=== PATIENT | male | born 1985 | race American Indian/Alaskan Native ===

== ENCOUNTER 2017-04-13 18:22 | Inpatient (IN) | payer MEDICAID, OTHER ==
[2017-04-13 18:22] VITALS: BMI 23.1
--- NOTE | 2017-04-13 19:07 | ED PDOC ---
Arrival/HPI <John Lee - Last Filed: 04/13/17 22:24> - General Historian: Patient EM Caveat: Acuity of Condition - History of Present Illness Time/Duration: Prior to Arrival Symptom Onset: Gradual Symptom Course: Unchanged Activities at Onset: Emotional Upset Context: Home <Francisco Conklin - Last Filed: 04/13/17 22:29> - General Chief Complaint: Psychiatric Evaluation Time Seen by Provider: 04/13/17 18:28 - History of Present Illness Narrative History of Present Illness (Text): Patient is a 32 year old male who presents to the [facility] ED 04/13/17 with police after his girlfriend called them when he threatened to jump out of the window. Patient states he is currently going through a lot of stress with his girlfriend being . Patient states he has lots of pent up emotion since the of his father in 2010. Due to culture and events in life he feels as though he hasn't been able to fully mourn, express his emotions which lead to these occasional outburts. Patient denies any thoughts of desire of suicide. He the words just came to his mind out of frustration 04/13/17 19:15 (Francisco Conklin) Past Medical History - Provider Review Nursing Documentation Reviewed: Yes - Infectious Disease Hx of Infectious Diseases: None - Psychiatric Hx Substance Use: No - Surgical History Hx Orthopedic Surgery: Yes (right ankle) Other/Comment: Hernia Surgery at age 6 <Francisco Conklin - Last Filed: 04/13/17 22:29> Family/Social History - Physician Review Nursing Documentation Reviewed: Yes Family/Social History: Other (non contributory) Smoking Status: Current Some Days Smoker Hx Alcohol Use: No Hx Substance Use: No <Francisco Conklin - Last Filed: 04/13/17 22:29> Allergies/Home Meds <John Lee - Last Filed: 04/13/17 22:24> <Francisco Conklin - Last Filed: 04/13/17 22:29> Allergies/Adverse Reactions: Allergies No Known Allergies Allergy (Verified 04/13/17 18:28) Home Medications: Home Meds Medication Instructions Recorded Confirmed No Known Home Med 07/27/16 04/13/17 Review of Systems - Physician Review All systems were reviewed & negative as marked: Yes - Review of Systems Systems not reviewed;Unavailable: Acuity of Condition Constitutional: absent: Fatigue, Weight Change Eyes: Normal ENT: Normal. absent: Hearing Changes Respiratory: absent: SOB, Cough Cardiovascular: absent: Chest Pain, Palpitations Gastrointestinal: absent: Abdominal Pain, Stool Changes Genitourinary Male: Dysuria, Frequency Musculoskeletal: Normal Skin: Normal Neurological: absent: Headache, Dizziness Endocrine: absent: Diaphoresis, Polyuria Hemo/Lymphatic: Normal Psychiatric: absent: Depression, Suicidal Ideation <Francisco Conklin - Last Filed: 04/13/17 22:29> Physical Exam Vital Signs Reviewed: Yes Temperature: Afebrile Blood Pressure: Normal Pulse: Regular Respiratory Rate: Normal Appearance: Positive for: Well-Appearing Pain Distress: None Mental Status: Positive for: Alert and Oriented X 3 - Systems Exam Head: Present: Atraumatic, Normocephalic Extroacular Muscles: Present: EOMI Mouth: Present: Moist Mucous Membranes Neck: Present: Normal Range of Motion Respiratory/Chest: Present: Clear to Auscultation, Good Air Exchange Cardiovascular: Present: Regular Rate and Rhythm, Normal S1, S2, Tachycardic. No: Murmurs Abdomen: No: Tenderness, Distention, Normal Bowel Sounds Neurological: No: CN II-XII Intact Skin: Present: Warm, Normal Color Psychiatric: Present: Alert, Oriented x 3 <Francisco Conklin - Last Filed: 04/13/17 22:29> Vital Signs Temp Pulse Resp BP Pulse Ox 04/13/17 20:25 55 L 16 119/68 99 04/13/17 18:41 99.1 F 64 16 134/87 98 Medical Decision Making <John Lee - Last Filed: 04/13/17 22:24> - Lab Interpretations I have reviewed the lab results: Yes - EKG Interpretation Interpreted by ED Physician: Yes Type: 12 lead EKG <Francisco Conklin - Last Filed: 04/13/17 22:29> ED Course and Treatment: 04/13/17 Patient Seen With Resident: In agreement with resident note which contains more details about the patient. Patient was seen and evaluated with resident. Came up with plan and treatment together. 04/13/17 22:14 Patient seen with resident; he was cleared for PES evaluation. Seen by PES - not cleared - will need [facility] screen. 04/13/17 22:15 Patient will be endorsed to Dr. Britton. (John Lee) Assessment 32 year old male who states at home " I want to jump out of a window" Plan - Drug screen, CBC, CMP - CXR, EKG - UA - PES assessment; [facility] will assess to see if patient will be committed 04/13/17 19:29 (Francisco Conklin) - Lab Interpretations Lab Results: 04/13/17 19:12 04/13/17 19:12 Lab Results 04/13/17 19:43: Urine Opiates Screen Negative, Urine Methadone Screen Negative, Ur Barbiturates Screen Negative, Ur Phencyclidine Scrn Negative, Ur Amphetamines Screen Negative, U Benzodiazepines Scrn Negative, U Oth Cocaine Metabols Negative, U Cannabinoids Screen Positive H 04/13/17 19:43: Urine Color Yellow, Urine Appearance Clear, Urine pH 6.0, Ur Specific [place] >= 1.030, Urine Protein Trace H, Urine Glucose (UA) Negative, Urine Ketones Trace H, Urine Blood Negative, Urine Nitrate Negative, Urine Bilirubin Negative, Urine Urobilinogen 1.0 H, Ur Leukocyte Esterase Negative, Urine RBC Negative, Urine WBC 1 - 3, Urine Other Mucus 04/13/17 19:12: Alcohol, Quantitative < 10 04/13/17 19:12: Sodium 143, Potassium 4.1, Chloride 104, Carbon Dioxide 27, Anion Gap 16, BUN 15, Creatinine 1.0, Est GFR ( Amer) > 60, Est GFR (Non- Af Amer) > 60, Random Glucose 84, Calcium 10.0, Magnesium 2.0, Total Bilirubin 1.2, AST 47, ALT 37, Alkaline Phosphatase 46, Total Creatine Kinase 1462 H, CK- MB (CK-2) 3.0, CK-MB (CK-2) % Cancelled, Total Protein 8.4 H, Albumin 5.0 H, Globulin 3.3, Albumin/Globulin Ratio 1.5, Lipase 59 04/13/17 19:12: WBC 5.4, RBC 4.03, Hgb 13.4 L, Hct 39.4 L, MCV 97.8, MCH 33.3, MCHC 34.0, RDW 11.1 L, Plt Count 164, MPV 11.1 H, Gran % 53.1, Lymph % (Auto) 36.4 H, [place] % (Auto) 8.4 H, Eos % (Auto) 1.7, Baso % (Auto) 0.4, Gran # 2.85, Lymph # 2.0, [place] # 0.5, Eos # 0.1, Baso # 0.02 - RAD Interpretation Radiology Orders: 04/13/17 18:36 CHEST PORTABLE [RAD] Stat - PA / FLOOR LAYER / Resident Statement /DO has reviewed & agrees with the documentation as recorded. / has examined the patient and agrees with the treatment plan. <John Lee - Last Filed: 04/13/17 22:24> Disposition/Present on Arrival - Present on Arrival Any Indicators Present on Arrival: No - Disposition Have Diagnosis and Disposition been Completed?: No Disposition Time: 23:00 <John Lee - Last Filed: 04/13/17 22:24> - Present on Arrival Any Indicators Present on Arrival: No History of DVT/PE: No History of Uncontrolled Diabetes: No Urinary Catheter: No History of Decub. Ulcer: No History Surgical Site Infection Following: None - Disposition Have Diagnosis and Disposition been Completed?: No <Francisco Conklin - Last Filed: 04/13/17 22:29> - Disposition Diagnosis: Depression Patient Problems: Current Active Problems Problem Status Onset Depression Acute Condition: STABLE Referrals: PCP,NO [Primary Care Provider] - Follow up with primary Forms: [employer] (Maldivian)
[2017-04-13 19:30] LABS: BASO # 0.02 K/mm3 (0.0-2.0); BASO % 0.4 % (0.0-3.0); EOS # 0.1 (0.0-0.7); EOS % 1.7 % (1.5-5.0); GRAN # 2.85 (1.4-6.5); GRAN % 53.1 % (50.0-68.0); HEMATOCRIT 39.4 % (42.0-52.0); LYMPH % 36.4 % (22.0-35.0); MEAN CELL VOLUME 97.8 fl (80.0-105.0); MEAN CORPUSCULAR HEMOGLOBIN 33.3 pg (25.0-35.0); MEAN PLATELET VOLUME 11.1 fl (7.0-11.0); MONO # 0.5 (0.1-0.6); MONO % 8.4 % (1.0-6.0); RED CELL DISTRIBUTION WIDTH 11.1 % (11.5-14.5); WHITE BLOOD COUNT 5.4 10^3/ul (4.5-11.0)
[2017-04-13 19:37] LABS: ALB/GLOB RATIO 1.5 (1.1-1.8); ALKALINE PHOSPHATASE 46 U/L (38-126); ALT/SGPT 37 U/L (7-56); AST/SGOT 47 U/L (17-59); BILIRUBIN,TOTAL 1.2 mg/dL (0.2-1.3); BLOOD UREA NITROGEN 15 mg/dL (7-21); CARBON DIOXIDE 27 mmol/L (21-33); CHLORIDE 104 mmol/L (98-107); GFR AFRICAN-AMERICAN > 60; GLUCOSE,RANDOM 84 mg/dL (70-110); LIPASE 59 U/L (23-300); POTASSIUM 4.1 mmol/L (3.6-5.0); SODIUM 143 mmol/L (132-148); TOTAL PROTEIN 8.4 g/dL (5.8-8.3)
[2017-04-13 19:54] LABS: URINE BILIRUBIN NEGATIVE (NEGATIVE); URINE BLOOD NEGATIVE (NEGATIVE); URINE GLUCOSE (UA) NEGATIVE (NEGATIVE); URINE KETONE TRACE mg/dL (NEGATIVE); URINE LEUKOCYTE ESTERASE NEGATIVE Leu/uL (NEGATIVE); URINE PROTEIN TRACE mg/dL (<30 mg/dL)
[2017-04-13 19:55] LABS: URINE APPEARANCE CLEAR (CLEAR); URINE COLOR YELLOW (YELLOW)
[2017-04-13 19:57] LABS: URINE RBC NEGATIVE /hpf (0-2)
[2017-04-13] MEDS ORDERED: Sodium Chloride 0.9% 1,000 ML IV SCH (23:45)
--- NOTE | 2017-04-14 00:04 | ED PDOC ---
Physical Exam Vital Signs Reviewed: Yes Vital Signs Temp Pulse Resp BP Pulse Ox 04/14/17 00:06 98.3 F 51 L 16 146/84 100 04/13/17 20:25 55 L 16 119/68 99 04/13/17 18:41 99.1 F 64 16 134/87 98 Temperature: Afebrile Blood Pressure: Normal Pulse: Regular Respiratory Rate: Normal Appearance: Positive for: Well-Appearing, Non-Toxic, Comfortable Pain Distress: None Mental Status: Positive for: Alert and Oriented X 3 Medical Decision Making ED Course and Treatment: 04/13/17 23:00 Case endorsed to me by Dr. Lee, pending [facility] PES screening. 04/14/17 00:56 Pt re-evaluated by [facility] screener Anamaria, who discussed case with psychiatrist. Pt now agreeable with voluntary admission. Pt will be admitted to Behavioral Health for depression and adjustment disorder under Dr. Jones' s service. - Lab Interpretations Lab Results: 04/13/17 19:12 04/13/17 19:12 Lab Results 04/13/17 19:43: Urine Opiates Screen Negative, Urine Methadone Screen Negative, Ur Barbiturates Screen Negative, Ur Phencyclidine Scrn Negative, Ur Amphetamines Screen Negative, U Benzodiazepines Scrn Negative, U Oth Cocaine Metabols Negative, U Cannabinoids Screen Positive H 04/13/17 19:43: Urine Color Yellow, Urine Appearance Clear, Urine pH 6.0, Ur Specific [place] >= 1.030, Urine Protein Trace H, Urine Glucose (UA) Negative, Urine Ketones Trace H, Urine Blood Negative, Urine Nitrate Negative, Urine Bilirubin Negative, Urine Urobilinogen 1.0 H, Ur Leukocyte Esterase Negative, Urine RBC Negative, Urine WBC 1 - 3, Urine Other Mucus 04/13/17 19:12: Alcohol, Quantitative < 10 04/13/17 19:12: Sodium 143, Potassium 4.1, Chloride 104, Carbon Dioxide 27, Anion Gap 16, BUN 15, Creatinine 1.0, Est GFR ( Amer) > 60, Est GFR (Non- Af Amer) > 60, Random Glucose 84, Calcium 10.0, Magnesium 2.0, Total Bilirubin 1.2, AST 47, ALT 37, Alkaline Phosphatase 46, Total Creatine Kinase 1462 H, CK- MB (CK-2) 3.0, CK-MB (CK-2) % Cancelled, Total Protein 8.4 H, Albumin 5.0 H, Globulin 3.3, Albumin/Globulin Ratio 1.5, Lipase 59 04/13/17 19:12: WBC 5.4, RBC 4.03, Hgb 13.4 L, Hct 39.4 L, MCV 97.8, MCH 33.3, MCHC 34.0, RDW 11.1 L, Plt Count 164, MPV 11.1 H, Gran % 53.1, Lymph % (Auto) 36.4 H, [place] % (Auto) 8.4 H, Eos % (Auto) 1.7, Baso % (Auto) 0.4, Gran # 2.85, Lymph # 2.0, [place] # 0.5, Eos # 0.1, Baso # 0.02 - RAD Interpretation Radiology Orders: 04/13/17 18:36 CHEST PORTABLE [RAD] Stat - Medication Orders Current Medication Orders: Sodium Chloride (Sodium Chloride 0.9%) 1,000 mls @ 1,000 mls/hr IV .Q1H FRANCISCO Last Admin: 04/14/17 00:49 Dose: 1,000 mls/hr Disposition/Present on Arrival - Present on Arrival Any Indicators Present on Arrival: No History of DVT/PE: No History of Uncontrolled Diabetes: No Urinary Catheter: No History of Decub. Ulcer: No History Surgical Site Infection Following: None - Disposition Have Diagnosis and Disposition been Completed?: Yes Diagnosis: Depression Disposition: HOSPITALIZED Disposition Time: 00:55 Condition: GOOD
[2017-04-14] MEDS ORDERED: Magnesium Hydroxide Susp 30 ml UD PO PRN (04:41)
[2017-04-14] MEDS ORDERED: Alum-Mag Hydrox-Simethicone Susp (30 mL) PO PRN (04:41)
--- NOTE | 2017-04-14 05:04 | PCM.BM ---
<Andrew Leung - Last Filed: 04/14/17 05:03> Treatment Plan Problems - Problems identified on initial assessmt Ineffective Coping Date Initiated: 04/14/17 Time Initiated: 05:03 Assessment reference: NA Status: Active Priority: 1 Impaired Adjustment Date Initiated: 04/14/17 Time Initiated: 05:03 Assessment reference: NA Status: Active Priority: 2 Treatment assets and liabiliti Patient Assests: cooperative, educated, insightful, motivated, self-reliant, ADL independent, physically healthy, good support system, negotiates basic needs , financial stabiity, cognitively intact, good interpersonal skills Patient Liabilities: relationship conflicts, substance abuse - Milieu Protocol Maintain good personal hygiene: daily Encourage regular showers Maintain personal safety: every shift Educate patient to report safety concerns to staff, every shift Monitor environment for contraband/sharps Medication safety: Monitor for expected outcome, potential side effects: every shift, Assess barriers to learning: every shift, Assess readiness for medication education: every shift Discharge/Continuing Care - Education Needs Education Needs: Patient Diagnosis/Disease Process, Patient Coping Skills, Patient Anger Management skills - Discharge Discharge Criteria: Free of Suicidal thoughts <Carline Jones - Last Filed: 04/15/17 13:10> - Diagnosis (1) Adjustment disorder with depressed mood Status: Acute Interventions: 04/15/17 13:11 Psychopharmacology/adjustment of medications as needed/ monitoring possible side effects Evaluate pt on daily basis Compliance with medications and follow up appointments Suicide and homicide risk assessment and prevention Relapse prevention Reduction of symptoms Improve functional status Family involvement As outpatient: cognitive behavioral therapy (2) Cannabis abuse Status: Acute Interventions: 04/15/17 13:12 Maintaining sobriety Relapse prevention Possible rehabilitation Motivational interviewing 12-step programs: AA meetings <Linda Steele - Last Filed: 04/15/17 13:58>
[2017-04-14 06:48] VITALS: O2SAT 98
--- NOTE | 2017-04-14 07:30 | RAD ---
HISTORY: psych COMPARISON: No prior. FINDINGS: LUNGS: No active pulmonary disease. PLEURA: No significant pleural effusion identified, no pneumothorax apparent. CARDIOVASCULAR: Normal. OSSEOUS STRUCTURES: No significant abnormalities. VISUALIZED UPPER ABDOMEN: Normal. OTHER FINDINGS: None. IMPRESSION: No acute cardiopulmonary disease appreciated.
[2017-04-14 07:51] LABS: CHOLESTEROL 97 mg/dL (130-200); GLUCOSE,FASTING 88 mg/dL (65-110)
[2017-04-14 08:20] LABS: FREE T4 1.03 ng/dL (0.78-2.19)
[2017-04-14 08:34] LABS: THYROID STIMULATING HORMONE 1.04 mIU/mL (0.46-4.68)
--- NOTE | 2017-04-14 11:13 | CARD ---
APPROVED REPORT EKG Measurement Heart [id number] <Conclusion> Marked sinus bradycardia Moderate voltage may be normal variant for young age. Early repolarization
--- NOTE | 2017-04-14 15:43 | CP.PCM.CON ---
<Dandre Brown - Last Filed: 04/14/17 16:26> History of Present Illness - History of Present Illness History of Present Illness: Patient is a 32 year old male who presented for depression and suicidal ideation. We were consulted on this patient for evaluation and treatment of any medical issues. ROS Complains of: No complaints Denies: Fever, chills, CP, SOB, Abdominal Pain, N/V/D, constipation, urinary symptoms, suicidal ideation. PMHx: Denies PSHx: Denies Allergies: NKDA Social Hx: moderate alcohol (1 glass of wine), moderate tobacco use and mild marijuana use. Denies any other illicit drug use Fam Hx: father of prostate cancer in 2010 at 71 years old. Meds: none Review of Systems - Review of Systems Review of Systems: As per HPI Past Patient History - Infectious Disease Hx of Infectious Diseases: None - Past Social History Smoking Status: Current Some Days Smoker - CARDIAC Hx Cardiac Disorders: No Hx Hypertension: No - PULMONARY Hx Tuberculosis: No - NEUROLOGICAL HX Cerebrovascular Accident: No Hx Seizures: No - HEMATOLOGICAL/ONCOLOGICAL Hx Cancer: No Hx Human Immunodeficiency Virus (HIV): No - GENITOURINARY/GYNECOLOGICAL Hx Sexually Transmitted Disorders: No - PSYCHIATRIC Hx Substance Use: Yes - SURGICAL HISTORY Hx Orthopedic Surgery: Yes (right ankle) Other/Comment: Hernia Surgery at age 6 Meds Allergies/Adverse Reactions: Allergies Allergy/AdvReac Type Severity Reaction Status Date / Time No Known Allergies Allergy Verified 04/14/17 06:09 - Medications Medications: Current Medications Acetaminophen (Tylenol 325mg Tab) 650 mg PO Q4 PRN PRN Reason: Pain, Mild (1-3) Al Hydrox/Mg Hydrox/Simethicone (Maalox Plus 30 Ml) 30 ml PO DAILY PRN PRN Reason: Upset Stomach Magnesium Hydroxide (Milk Of Magnesia) 30 ml PO DAILY PRN PRN Reason: Constipation Mirtazapine (Remeron) 15 mg PO HS FRANCISCO Physical Exam - Constitutional Appears: Well, Non-toxic, No Acute Distress - Head Exam Head Exam: ATRAUMATIC, NORMAL INSPECTION, NORMOCEPHALIC - Eye Exam Eye Exam: EOMI, Normal appearance - ENT Exam ENT Exam: Mucous Membranes Moist - Respiratory Exam Respiratory Exam: Clear to Auscultation Bilateral. absent: Rales, Rhonchi, Wheezes, Stridor - Cardiovascular Exam Cardiovascular Exam: RRR, +S1, +S2 - GI/Abdominal Exam GI & Abdominal Exam: Normal Bowel Sounds, Soft. absent: Organomegaly, Tenderness - Extremities Exam Extremities exam: Positive for: normal inspection. Negative for: pedal edema - Back Exam Back exam: absent: CVA tenderness (L), CVA tenderness (R) - Neurological Exam Neurological exam: Alert, Oriented x3 - Psychiatric Exam Psychiatric exam: Normal Affect, Normal Mood - Skin Skin Exam: Dry, Intact, Normal Color, Warm Results - Vital Signs Recent Vital Signs: Last Vital Signs Temp 98 F 04/14/17 06:00 Pulse 56 L 04/14/17 06:00 Resp 18 04/14/17 06:00 BP 97/42 L 04/14/17 06:00 Pulse Ox 98 04/14/17 06:00 - Labs Result Diagrams: 04/13/17 19:12 04/13/17 19:12 Labs: Laboratory Results - last 24 hr 04/14/17 04/14/17 07:15 07:15 Fasting Glucose 88 Triglycerides 61 Cholesterol 97 L LDL Cholesterol Direct 63 HDL Cholesterol 28 L Free T4 1.03 TSH 3rd Generation 1.04 Assessment & Plan - Assessment and Plan (Free Text) Assessment: 32 year old male admitted to psych unit for evaluation of depression w/ possible suicidal ideation. Plan: Total CK was elevated. Kidney function is normal. Please encourage patient to drink a lot of liquids. Patient is dehydrated. We will sign off on this patient. Please feel free to contact us with any questions. Thank you - Date & Time Date: 04/14/17 Time: 01:30 <Ksenia Madrid MD - Last Filed: 04/14/17 17:03> Meds - Medications Medications: Current Medications Acetaminophen (Tylenol 325mg Tab) 650 mg PO Q4 PRN PRN Reason: Pain, Mild (1-3) Al Hydrox/Mg Hydrox/Simethicone (Maalox Plus 30 Ml) 30 ml PO DAILY PRN PRN Reason: Upset Stomach Magnesium Hydroxide (Milk Of Magnesia) 30 ml PO DAILY PRN PRN Reason: Constipation Mirtazapine (Remeron) 15 mg PO HS FRANCISCO Results - Vital Signs Recent Vital Signs: Last Vital Signs Temp 98 F 04/14/17 06:00 Pulse 58 L 04/14/17 16:48 Resp 18 04/14/17 06:00 BP 116/72 04/14/17 16:48 Pulse Ox 98 04/14/17 06:00 - Labs Result Diagrams: 04/13/17 19:12 04/13/17 19:12 Labs: Laboratory Results - last 24 hr 04/14/17 04/14/17 04/14/17 07:15 07:15 07:15 Fasting Glucose 88 Triglycerides 61 Cholesterol 97 L LDL Cholesterol Direct 63 HDL Cholesterol 28 L Free T4 1.03 TSH 3rd Generation 1.04 RPR Nonreactive Attending/Attestation - Attestation I have personally seen and examined this patient.: Yes I have fully participated in the care of the patient.: Yes I have reviewed all pertinent clinical information: Yes Notes (Text): 04/14/17 16:59 Patient was seen and examined with internist medical doctor md. 32 Yrs old male is admitted to Psychiatric floor for suicidal idation.He is ambulatory, does not has any headache, dizziness, chest pain,palpitation, nausea , vomiting or diarrhea.His CK is mildly elevated but renal functions are normal.He had been encouraged to keep himself hydrated. There is no active medical issue at this time.We will sign off.Please call us back if any question. Management plan was discussed in detail with patient Education was provided.
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
[2017-04-15 07:02] VITALS: BP 108/62; PULSE 42; RESP 20; TEMP 98.5
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
== END 2017-04-15 16:04 | disposition home or self-care (01) | DRG 881 ==
LOC: ED 18:22 → ERH 04-14 00:55 → PSYC 04-14 01:56
PROVIDERS: ADMIT Psychiatry & Neurology Psychiatry; ATTEND Psychiatry & Neurology Psychiatry
DX: F43.21 Adjustment disorder with depressed mood (principal); F12.20 Cannabis dependence, uncomplicated